=== PATIENT | female | born 1990 | race Two or more races ===

== ENCOUNTER 2025-02-20 09:38 | Emergency (ER) | payer BC, OTHER ==
[~2025-02-20] VITALS: Ht 165.1 cm; Wt 87.5 kg
[2025-02-20 10:01] VITALS: BP 113/76; PULSE 77; RESP 16; O2SAT 97
[2025-02-20] MEDS: LIDOCAINE 5% TOPICAL PATCH TOP ONE (10:15)
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
[2025-02-20 10:51] VITALS: TEMP 98.4
[2025-02-20] MEDS: ACETAMINOPHEN 500 MG TAB or CAP PO ONE (10:51)
[2025-02-20] MEDS: KETOROLAC TROMETH 60MG/2ML VIAL IM ONE (10:56)
== END 2025-02-20 11:24 | disposition home or self-care (01) ==
LOC: ER 09:38
DX: M54.50 Low back pain, unspecified (principal); R10.30 Lower abdominal pain, unspecified; V43.52XA Car driver injured in collision with other type car in traffic accident, initial encounter; Y93.89 Activity, other specified; Y92.410 Unspecified street and highway as the place of occurrence of the external cause; Y99.8 Other external cause status
CPT/HCPCS: 96372; 99283; J1885